=== PATIENT | male | born 1990 | race Hispanic/Latino ===

== ENCOUNTER 2019-04-05 09:27 | Day surgery (SDC) | payer OTHER ==
[~2019-04-05] VITALS: Ht 182.9 cm; Wt 98.3 kg
[~2019-04-05 09:27] MED LIST: LR 1,000 ML IV ONE
[2019-04-05] MEDS ORDERED: ONDANSETRON 4MG/2ML VIAL (J2405) As Ordered ONE (13:00)
[2019-04-05] MEDS ORDERED: MIDAZOLAM INJ 2 MG/2 ML VIAL (J2250) As Ordered ONE (13:00)
[2019-04-05] MEDS ORDERED: ROCURONIUM BROMIDE 50 MG/5 ML VIAL As Ordered ONE (13:00)
[2019-04-05] MEDS ORDERED: NEOSTIGMINE 10 MG/10 ML VIAL (J2710) As Ordered ONE (13:00)
[2019-04-05] MEDS ORDERED: PROPOFOL 200 MG/20 ML VIAL As Ordered ONE (13:00)
[2019-04-05] MEDS ORDERED: GLYCOPYRROLATE INJ 0.2 MG/ML 2 ML VIAL As Ordered ONE (13:00)
[2019-04-05] MEDS ORDERED: METOCLOPRAMIDE INJ 10MG/2ML VIAL (J2765) As Ordered ONE (13:00)
[2019-04-05] MEDS ORDERED: fentaNYL 100 MCG/2 ML INJECTION (J3010) As Ordered ONE ×2 (13:00→14:09)
[2019-04-05] MEDS ORDERED: dexameTHASONE 4 MG/ML 1ML VIAL (J1100) As Ordered ONE (13:00)
[2019-04-05] MEDS ORDERED: LIDOCAINE 2% INJ 100 MG/5 ML SDV (FOR ANES.) As Ordered ONE (13:00)
[2019-04-05] MEDS ORDERED: METHYLENE BLUE 0.5% (5MG/ML) 10 ML AMP (PROVAYBLUE)(Q9968 PER 1MG) As Ordered ONE (13:41)
[2019-04-05] MEDS ORDERED: LIDOCAINE W/EPINEPHRINE 1% 20ML VIAL As Ordered ONE (13:41)
[2019-04-05] MEDS ORDERED: EPINEPHrine 1MG/ML INJ 30ML MD-VIAL As Ordered ONE (13:41)
[2019-04-05] MEDS ORDERED: LACRILUBE (AKWA TEARS) OPHTH OINT 3.5 GM As Ordered ONE (14:12)
[2019-04-05] MEDS ORDERED: ACETAMINOPHEN 1000MG 100ML IV BTL (OFIRMEV) (J0131 PER 10MG) As Ordered ONE (14:12)
[2019-04-05] MEDS ORDERED: LR 1,000 ML IV SCH ×2 (15:30)
[2019-04-05] MEDS ORDERED: oxyCODONE 5MG TAB PO PRN (15:30)
[2019-04-05] MEDS ORDERED: ACETAMINOPH W/CODEINE #3 TAB UD PO PRN (15:30)
[2019-04-05] MEDS ORDERED: fentaNYL 100 MCG/2 ML INJECTION (J3010) IV PRN (15:30)
[2019-04-05] MEDS ORDERED: ONDANSETRON 4MG/2ML VIAL (J2405) IV PRN (15:30)
[2019-04-05] MEDS ORDERED: METOCLOPRAMIDE INJ 10MG/2ML VIAL (J2765) IV PRN (15:30)
[2019-04-05 15:40] VITALS: BP 123/84
--- NOTE | 2019-04-05 22:49 | RO ---
DATE OF PROCEDURE: 04/05/2019 PREPROCEDURE DIAGNOSIS: Nasal septal deviation and epistaxis. POSTPROCEDURE DIAGNOSIS: Nasal septal deviation and epistaxis. PROCEDURE: Septoplasty and right nasal cautery. SURGEON: Dr. Kashif Caputo [employer]: ANESTHESIA: General. DESCRIPTION OF PROCEDURE: Under general anesthesia, the nose was infiltrated with lidocaine and epinephrine, and I used pledgets of adrenaline 1:1000. I made an incision anteriorly on the left side, elevated subperichondrial-periosteal plane. There was a lot of scarring in the nose. I did have to remove a lot of the scarring. I elevated the periosteum, mucoperiosteum on both sides. There was a lot of scar tissue inferiorly, which I removed with a scalpel. There was some duplication of the cartilage, which I removed as well. I the quadrangular cartilage from the maxillary crest and ethmoid plate and then removed a portion of the ethmoid plate and maxillary crest. Then, I made an incision in the quadrangular cartilage so that it would sit in the midline. Once this was done, the septum was straight, so the incision was closed with interrupted #4-0 chromic suture. I cauterized in Little's area anteriorly on the right side. The patient tolerated the procedure well and was extubated and transferred to the recovery room in excellent condition. Less than 20 mL estimated blood loss.
== END 2019-04-05 16:25 | disposition home or self-care (01) ==
LOC: M SDC 09:27
PROVIDERS: ATTEND Otolaryngology
DX: J34.2 Deviated nasal septum (principal); R04.0 Epistaxis
CPT/HCPCS: 30520; 30901; 88300; J0131; J1100; J2250; J2405; J2710; J2765; J3010; Q9968